=== PATIENT | female | born 1970 | race Caucasian/White ===

== ENCOUNTER 2016-12-11 09:05 | Emergency (ER) | payer OTHER ==
[2016-12-11 09:18] VITALS: BP 125/72
--- NOTE | 2016-12-11 09:42 | ERNOTE ---
Date of Service: 12/11/16 Time Seen by Provider: 12/11/16 09:23 Stated Complaint: COUGH Presenting Symptoms:: cough Source: patient Exam Limitations: no limitations Immunizations: IMMUNIZATION HX Immunizations Up to Date Yes History of Influenza Vaccine Yes Hx Pneumococcal Vaccination No Allergies/Adverse Reactions: Allergies No Known Allergies Allergy (Verified 05/31/16 08:42) Home Medications: HOME MEDICATIONS Meloxicam [Mobic] 7.5 mg PO DAILY 08/10/14 [Last Taken 08/10/14] Losartan Potassium [Cozaar] 50 mg PO DAILY 05/31/16 [Last Taken Unknown] Albuterol Sulfate [Proair Hfa] 1 - 2 puff IH Q4H PRN #1 inhaler 12/11/16 [Last Taken Unknown] Azithromycin [Zithromax] 500 mg PO NOW #6 tab 12/11/16 [Last Taken Unknown] Prednisone 50 mg PO DAILY #5 tablet 12/11/16 [Last Taken Unknown] - History of Present Ilness Narrative: Patient relates she has been coughing for over a week. She relates nasal congestion. Cough. This has been constant for 1 week. No hemoptysis. She relates she is prone to bronchitis and will normally get steroid and antibiotics. She relates chronic pain in her back and lefs but no new pain, no chest pain or abdominal pain. Does not feel SOB. No fever. Nothing seems to make this better or worse. Has not seen anyone else for this. Timing: constant Severity: moderate Frequency/Possible Cause: Reports: other - Hx of this in the past with bronchitis. Patient is a smoiker. Modifying Factors - Improves: Reports: nothing Modifying Factors - Worsens: Reports: nothing Associated Symptoms: Reports: cough, nasal congestion. Denies: chest pain/ soreness, shortness of breath, sore throat, fever/chills Prior Treatment: Denies: recently seen Review of Systems - Review of Systems Constitutional: Absent: fever ENT: Present: nose congestion Respiratory: Present: cough Cardiology: Absent: chest pain Gastrointestinal/Abdominal: Absent: abdominal pain Neurological: Absent: weakness - Patient's Past Medical History Patient History - Medical: Arthritis Patient History - Cardiac/Respiratory: Hypertension Patient History - Cancer: No Hx of Cancer Patient History - Surgical Procedures: , Tubal Ligation Patient History - Other: None LMP (Calendar): 05/17/16 - Social History Living Situations: home Smoking Status: Current every day smoker Alcohol Use: occasionally Drug Use: none - Immunizations Immunizations Up to Date: Yes Hx Pneumococcal Vaccination: No History of Influenza Vaccine: Yes Physical Exam - Physical Exam General Appearance: Present: alert, no apparent distress, other - Occasional cough. Speaking in full sentences. Non-toxic, no distress. Eye Exam: Normal inspection: bilateral, PERRL: bilateral Ears, Nose, Throat: Present: normal ENT inspection, normal pharynx. Absent: pharyngeal erythema, pharyngeal swelling, tonsillar exudate Neck: Present: normal inspection Respiratory: Present: no respiratory distress, other - occasional cough, no distress. Few faint scattered wheezes. 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 Vital Signs: Vital Signs 12/11/16 09:15 Temperature 36.0 C L Pulse Rate 91 Respiratory 16 Rate Blood Pressure 125/72 O2 Sat by Pulse 95 Oximetry - Progress/Reassessment Chief Complaint: Cough Progress Note-Subjective: 12/11/16 09:36 I disucssed labs and CXR with the patient, she prefers treatment and follow-up. She understands risks and benefits. No distress. I discussed warning signs and reasons to return as well as the need for close f/u. Nothing would suggest PE, ACS or other life threat. 12/11/16 09:36 12/11/16 09:37 Departure - Departure Clinical Impression: Bronchitis Disposition: Home self-care Instructions: Acute Bronchitis Additional Instructions: Rest. See your doctor within 3 days for a re-check. Return if you change your mind about having any of the testing we discussed, develop fever, trouble breathing, new pain or if your condition worsens or changes in any way. Referrals: Amy Srinivasan MD [Primary Care Provider] - Prescriptions: Albuterol Sulfate [Proair Hfa] 1 - 2 puff IH Q4H PRN #1 inhaler PRN Reason: Shortness Of Breath Azithromycin [Zithromax] 500 mg PO NOW #6 tab Prednisone 50 mg PO DAILY #5 tablet
== END 2016-12-11 09:48 | disposition home or self-care (01) ==
LOC: ER 09:05
DX: J40 Bronchitis, not specified as acute or chronic (principal); F17.210 Nicotine dependence, cigarettes, uncomplicated

== ENCOUNTER 2017-05-24 14:13 | Emergency (ER) | payer OTHER ==
--- NOTE | 2017-05-24 14:41 | ERNOTE ---
<Selin Mae - Last Filed: 05/24/17 15:31> Date of Service: 05/24/17 Time Seen by Provider: 05/24/17 14:41 Stated Complaint: BRONCHITIS Presenting Symptoms:: cough, fever Source: patient Exam Limitations: no limitations Immunizations: IMMUNIZATION HX Immunizations Up to Date Yes History of Influenza Vaccine Yes Hx Pneumococcal Vaccination No Allergies/Adverse Reactions: Allergies No Known Allergies Allergy (Verified 05/24/17 14:21) Home Medications: HOME MEDICATIONS Meloxicam [Mobic] 7.5 mg PO DAILY 08/10/14 [Last Taken 08/10/14] Losartan Potassium [Cozaar] 50 mg PO DAILY 05/31/16 [Last Taken Unknown] Albuterol Sulfate [Proair Hfa] 1 - 2 puff IH Q4H PRN #1 inhaler 12/11/16 [Last Taken Unknown] Albuterol Sulfate/Ipratropium [Duoneb 2.5-0.5MG/3ML Soln] 3 ml IH QID #150 vial 05/24/17 [Last Taken Unknown] Doxycycline Hyclate [Morgidox] 100 mg PO BID #30 capsule 05/24/17 [Last Taken Unknown] Doxycycline Monohydrate 100 mg PO BID #20 tablet 05/24/17 [Last Taken Unknown] predniSONE [Prednisone] 3 tab PO DAILY #9 tab 05/24/17 [Last Taken Unknown] - History of Present Ilness Narrative: Pt. comes in with c/o cough, sinus congestion, fever, malaise, SOB, rhinorrhea, and chest congestion for two weeks. Pt. denies taking any of her inhaler as she cannot afford one and denies any other prehospital treatment. Pt. denies any CP, NVD, palpitations, or edema. Review of Systems - Review of Systems Constitutional: Present: fever, fatigue, malaise. Absent: recent illness, weakness EYE: Present: no symptoms reported ENT: Present: ear pain, nose congestion, nasal drainage. Absent: sore throat Respiratory: Present: shortness of breath, cough, orthopnea, wheezing Cardiology: Present: no symptoms reported. Absent: chest pain, palpitations, edema Gastrointestinal/Abdominal: Present: no symptoms reported. Absent: nausea, vomiting, diarrhea Genitourinary: Present: no symptoms reported. Absent: frequency, decreased urinary output Musculoskeletal: Present: no symptoms reported. Absent: back pain, joint pain Neurological: Present: no symptoms reported. Absent: headache, dizziness/light- headedness, weakness, numbness, tingling All Other Systems: All systems neg except as marked - Patient's Past Medical History Patient History - Medical: Arthritis Patient History - Cardiac/Respiratory: Asthma, Hypertension Patient History - Cancer: No Hx of Cancer Patient History - Surgical Procedures: , Tubal Ligation Patient History - Other: None LMP (females 10-50): now - Social History Living Situations: spouse Abuse History: No History of abuse Psych History: Hx of Anxiety, Hx of Depression Smoking Status: Current every day smoker Alcohol Use: occasionally Drug Use: none - Immunizations Immunizations Up to Date: Yes Hx Pneumococcal Vaccination: No History of Influenza Vaccine: Yes Physical Exam - Physical Exam General Appearance: Present: wd/wn, alert, no apparent distress Eye Exam: Normal inspection: bilateral, PERRL: bilateral, EOMI: bilateral Ears, Nose, Throat: Present: nasal congestion, sinus pain/drainage, normal pharynx Neck: Present: normal inspection, nontender. Absent: lymphadenopathy (R), lymphadenopathy (L) Respiratory: Present: no respiratory distress, no accessory muscle use, chest nontender, expiration (prolonged), crackles, rhonchi, wheezing Cardiovascular/Chest: Present: regular rate, rhythm, no murmur, normal peripheral pulses Gastrointestinal/Abdominal: Present: normal bowel sounds, nontender, nondistended, soft, no organomegaly Back Exam: Present: normal inspection Extremity Exam: Present: normal inspection Neurological Exam: Present: alert, oriented, normal mood/affect, no motor/ sensory deficits Skin Exam: Present: warm/dry, pallor ED Progress - Results and Orders Patient's Lab Results:: I have reviewed the patient's lab results. - Vital Signs Patient's Vital Signs:: I have reviewed the patient's vital signs. Vital Signs: Vital Signs 05/24/17 05/24/17 14:16 14:46 Temperature 37.0 C Pulse Rate 93 82 Respiratory 26 H Rate Blood Pressure 113/88 O2 Sat by Pulse 96 94 Oximetry - X-Ray X-Ray #1 X-Ray: chest Interpretation: Reviewed by me X-ray Comments: B lower lobe infiltrates with RLL and RML fibrotic changes. - Progress/Reassessment Chief Complaint: Cough Progress:: Improved Departure - Departure Clinical Impression: Pneumonia Qualifiers: Pneumonia type: due to unspecified organism Laterality: bilateral Lung location : lower lobe of lung Qualified Code(s): J18.9 - Pneumonia, unspecified organism Disposition: Home self-care Condition: Good Instructions: Community-Acquired Pneumonia, Adult, [id number] Additional Instructions: Please take nebulizer treatments every 6 hours until symptoms improve. Please follow up with primary provider in 2-3 days. Referrals: Amy Srinivasan MD [Primary Care Provider] - Prescriptions: Albuterol Sulfate/Ipratropium [Duoneb 2.5-0.5MG/3ML Soln] 3 ml IH QID #150 vial Doxycycline Hyclate [Morgidox] 100 mg PO BID #30 capsule Doxycycline Monohydrate 100 mg PO BID #20 tablet predniSONE [Prednisone] 3 tab PO DAILY #9 tab <[email or web address] - Last Filed: 05/25/17 13:53> Immunizations: IMMUNIZATION HX Immunizations Up to Date Yes History of Influenza Vaccine Yes Hx Pneumococcal Vaccination No - Patient's Past Medical History Patient History - Medical: Arthritis Patient History - Cardiac/Respiratory: Asthma, Hypertension Patient History - Cancer: No Hx of Cancer Patient History - Surgical Procedures: , Tubal Ligation Patient History - Other: None LMP (females 10-50): now LMP (Calendar): 05/17/16 - Social History Living Situations: spouse Abuse History: No History of abuse Psych History: Hx of Depression Smoking Status: Current every day smoker Alcohol Use: occasionally Drug Use: none - Immunizations Immunizations Up to Date: Yes Hx Pneumococcal Vaccination: No History of Influenza Vaccine: Yes ED Progress - Vital Signs Vital Signs: Vital Signs 05/24/17 14:16 Temperature 37.0 C Pulse Rate 93 Blood Pressure 113/88 O2 Sat by Pulse 96 Oximetry
[2017-05-24] MEDS ORDERED: ALBUTEROL SULFATE 2.5 MG/0.5 ML VIAL.NEB IH ONE ×2 (14:42→14:43)
[2017-05-24 15:07] LABS: Hematocrit 37.4 % (37.0-47.0); Hemoglobin 12.9 gm/dL (12.5-16.0); Mean Cell Volume 94.4 fl (78-100); Mean Corpuscular Hemoglobin 32.6 pg (27-31); Mean Corpuscular Hgb Conc 34.5 g/dl (32-36); Mean Platelet Volume 11.3 fl (6.0-9.5); Neutrophil # 8.8 K/mm3 (1.3-6.0); Neutrophil % 77.7 % (42-75.0); Platelet Count 227 K/mm3 (150-450); Red Blood Count 3.96 M/mm3 (4.2-5.4); Red Cell Distribution Width 13.3 % (11.5-14.0); White Blood Count 11.3 K/mm3 (4.0-10.5)
[2017-05-24] MEDS ORDERED: ALBUTEROL SULFATE/IPRATROPIUM 3 ML NEBU IH ONE ×2 (15:13→15:18)
[2017-05-24] MEDS ORDERED: METHYLPREDNISOLONE ACETATE 80 MG/ML VIAL IM ONE (15:13)
[2017-05-24] MEDS ORDERED: METHYLPREDNISOLONE ACETATE 80 MG/ML VIAL ONE (15:18)
[2017-05-24 15:20] LABS: Albumin * 3.3 gm/dl (3.4-5.0); Anion Gap 12.2 mmol/L (6.8-13.8); BUN/Creatinine Ratio 16.3 (9.0-21.6); Bilirubin, Total 0.4 mg/dL (0.0-1.1); Ca. Corrected For Albumin 9.1 mg/dL (8.4-10.2); Calcium * 8.9 mg/dL (7.9-10.9); Carbon Dioxide 25.8 mmol/L (24-32.6); Magnesium 1.9 mg/dL (1.2-2.8); Total Protein 6.9 gm/dL (6.2-8.2)
[2017-05-24 15:27] VITALS: BP 103/78
== END 2017-05-24 16:04 | disposition home or self-care (01) ==
LOC: ER 14:13
DX: J18.9 Pneumonia, unspecified organism (principal); F17.200 Nicotine dependence, unspecified, uncomplicated

== ENCOUNTER 2020-08-12 04:13 | Inpatient (IN) ==
[2020-08-12] MEDS ORDERED: DEXAMETHASONE SODIUM PHOSP/PF 10 MG/ML VIAL IM ONE (04:28)
[2020-08-12] MEDS ORDERED: NORMAL SALINE 1,000 ML IV ONE (04:28)
[2020-08-12] MEDS ORDERED: ALBUTEROL SULFATE/IPRATROPIUM 3 ML NEBU IH ONE ×5 (04:28→07:18)
[2020-08-12 04:33] LABS: Hematocrit 41.1 % (37.0-47.0); Hemoglobin 13.4 gm/dL (12.5-16.0); Mean Corpuscular Hemoglobin 32.3 pg (27-31); Mean Corpuscular Hgb Conc 32.6 g/dl (32-36); Mean Platelet Volume 10.4 fl (8-12.5); Neutrophil % 58.1 % (42-75.0); Platelet Count 336 K/mm3 (150-450); Red Blood Count 4.15 M/mm3 (4.2-5.4); White Blood Count 10.3 K/mm3 (4.0-10.5)
--- NOTE | 2020-08-12 04:33 | ERNOTE ---
Dyspnea - Date Date of Service: 08/12/20 - General Presenting Symptoms: shortness of breath, difficulty of breathing, wheezing Time Seen by Provider: 08/12/20 04:17 Source: patient Exam Limitations: no limitations - Immun/Allergies/Home Medications Immunizations: IMMUNIZATION HX Immunizations Up to Date No History of Influenza Vaccine Yes Hx Pneumococcal Vaccination No Allergies/Adverse Reactions: Allergies No Known Allergies Allergy (Verified 08/12/20 04:29) Home Medications: HOME MEDICATIONS gabapentin 300 mg capsule 300 mg PO BID #60 cap 03/05/20 [Last Taken Unknown] losartan 50 mg tablet See Rx Instructions .ROUTE .COMPLEX #30 tab 08/09/20 [Last Taken Unknown] meloxicam 15 mg tablet 15 mg PO DAILY #30 tab 08/09/20 [Last Taken Unknown] albuterol sulfate 90 mcg/actuation aerosol inhaler 1 - 2 puff IH Q4H PRN #8.5 g 08/10/20 [Last Taken Unknown] - History of Present Illness Narrative: 50-year-old female comes to the emergency room complaining of shortness of breath difficulty breathing which is been going on for 5 days gotten worse this morning 27 days ago she was diagnosed with discomfort positive she was treated at home under quarantine and also has been since that time had pneumonia did not want to be admitted to the hospital so was treated at home azithromycin and another antibiotic which she states she is finished Patient is a known heavy smoker she says she has not had wants to smoke in the last 4 weeks and she is morbidly obese Date (Duration): 08/12/20 Time (Timing): 04:30 Severity: moderate Treatment ADVENTURE GUIDE: by patient Initiating event: Reports: upper resp illness Frequency of episodes: Reports: occassional episodes Modifying Factors - (Improves): Reports: albuterol Modifying Factors (Worsens): Reports: coughing Associated Symptoms-Dyspnea: Reports: denies symptoms Prior Treatment: Reports: recently seen Review of Systems - Review of Systems Constitutional: Present: recent illness EYE: Present: no symptoms reported ENT: Present: no symptoms reported Respiratory: Present: shortness of breath, wheezing Cardiology: Present: no symptoms reported Gastrointestinal/Abdominal: Present: no symptoms reported Genitourinary: Present: no symptoms reported Musculoskeletal: Present: no symptoms reported Skin: Present: no symptoms reported Neurological: Present: no symptoms reported Endocrine: Present: no symptoms reported Hematologic/Lymphatic: Present: no symptoms reported Psych: Present: no symptoms reported All Other Systems: All systems neg except as marked Medical History (Last Reviewed 08/12/20 @ 04:31 by Federico Olmedo MD) COVID-19 Essential hypertension Onset Date: ~2014 Surgical History: Surgical History (Last Reviewed 08/12/20 @ 04:31 by Federico Olmedo MD) History of section Onset Date: Unknown History of tubal ligation Onset Date: ~1990 Family History: Family History (Last Reviewed 08/12/20 @ 04:29 by Kaylin Cleaning RN) Mother Diabetes CHF (congestive heart failure) Father Alive and well Social History: (Last Reviewed 08/12/20 @ 04:29 by Kaylin Cleaning RN) Social History: Marital status: Single current occupational status: employed Service: No Tobacco: Smoking Status: Current every day smoker tobacco type: cigarettes Alcohol: alcohol intake: current alcohol intake frequency: holiday/special occasion Substance Use: substance use type: does not use Dietary Habits: caffeine: Yes Physical Exam - Physical Exam General Appearance: Present: wd/wn, alert, moderate distress, obese Head Exam: Present: normal inspection Eye Exam: Normal inspection: bilateral Ears, Nose, Throat: Present: normal ENT inspection, dry mucous membranes Neck: Present: normal inspection, nontender, supple Respiratory: Present: respiratory distress, rhonchi, wheezing. Absent: no accessory muscle use Cardiovascular/Chest: Present: tachycardia Gastrointestinal/Abdominal: Present: normal bowel sounds Back Exam: Present: normal inspection Extremity Exam: Present: normal inspection Neurological Exam: Present: alert, oriented Skin Exam: Present: normal color Lymphatic Exam: Present: no adenopathy Progress - Results and Orders Patient's Lab Results:: I have reviewed the patient's lab results. Results and Orders: Laboratory Tests 08/12/20 04:27 WBC 10.3 RBC 4.15 L Hgb 13.4 Hct 41.1 MCV 99.0 MCH 32.3 H MCHC 32.6 RDW 14.0 Plt Count 336 Neutrophils % 58.1 Lymphocytes % 22.2 Laboratory Tests 08/12/20 04:27 Sodium 141 Plasma Sodium 141 Potassium 4.0 Chloride 105 Carbon Dioxide 24.8 Anion Gap 15.2 H BUN 22 Creatinine 1.20 Est GFR (Non-Af Amer) 50 L BUN/Creatinine Ratio 18.3 Random Glucose 119 H Calcium 9.5 Calcium Adj for Albumin 9.6 Total Bilirubin 0.4 AST 20 ALT 38 Alkaline Phosphatase 131 B-Natriuretic Peptide 27 Total Protein 7.5 Albumin 3.5 COVID-19 test was negative - Vital Signs Patient's Vital Signs:: I have reviewed the patient's vital signs. Vital Signs: Vital Signs 08/12/20 04:26 Temperature 36.1 C Pulse Rate 104 H Respiratory Rate 23 H Blood Pressure 149/90 H O2 Sat by Pulse Oximetry 93 O2 sat 93% blood pressure 149 90 Elevated - EKG EKG #1 EKG: NSR EKG read: Interp. by me EKG Comments: EKG Shows a Sinus Tach 102 PVC no acute changes from July 17, 2020 - X-Ray X-Ray #1 X-Ray: chest Interpretation: Interp. by me X-ray Comments: No acute disease - Progress/Reassessment Chief Complaint: Dyspnea Progress Note-Subjective: 08/12/20 05:10 Patient feeling better still somewhat wheezing able to speak in full sentences Plan - Plan Plan: Plan will be due next repeat extended albuterol treatment and the patient can be discharged home on steroids and nebulized after repeat nebulizer patient still feels very well off oxygen sats are 93-94% still speaking full sentences Patient was diagnosed on 06/28/2020 with GLEN Scanlon consulted and admitted Departure Clinical Impression: Asthma exacerbation in COPD, Acute asthmatic bronchitis, COVID-19 - Departure Disposition: Short Term Hospital Inpatient Condition: Stable Instructions: Chronic Bronchitis, Adult Additional Instructions: Objective Dr. Scanlon Referrals: Amy Srinivasan MD [Primary Care Provider] -
[2020-08-12 04:58] LABS: Albumin * 3.5 gm/dl (3.4-5.0); Anion Gap 15.2 mmol/L (6.8-13.8); BUN/Creatinine Ratio 18.3 (9.0-21.6); Bilirubin, Total 0.4 mg/dL (0.0-1.1); Ca. Corrected For Albumin 9.6 mg/dL (8.4-10.2); Calcium * 9.5 mg/dL (7.9-10.9); Carbon Dioxide 24.8 mmol/L (24-32.6); Total Protein 7.5 gm/dL (6.2-8.2)
[2020-08-12] MEDS ORDERED: ALBUTEROL SULFATE 2.5 MG/0.5 ML VIAL.NEB IH ONE ×2 (05:08→05:10)
[2020-08-12] MEDS ORDERED: AZITHROMYCIN 250 MG TABLET PO ONE (09:29)
[2020-08-12] MEDS ORDERED: predniSONE 20 MG TABLET PO SCH (09:30)
--- NOTE | 2020-08-12 10:03 | HP ---
Chief Complaint - Chief Complaint Date of Service: 08/12/20 Time of Service: 09:48 Chief Complaint: I have shortness of breath and cough History of Present Illness: 50-year-old female with past medical history of nicotine dependence, morbid obesity, COPD, hypertension, and COVID-19 infection was evaluated in the ER for worsening dyspnea at rest and on exertion, wheezing, and persistent cough. Patient was diagnosed and treated for COVID-19 infection a little over a month ago and was later found to have pneumonia. After receiving treatment the patient reports her symptoms almost completely resolved and she only had residual shortness of breath which is not new for. However a week ago the patient noticed that her shortness of breath worsened and was not responding to her inhalers. She also has a cough that is persistent and dry making it difficult for her to rest. Patient was treated with azithromycin and dexamethasone for her COVID-19 and pneumonia which improved her symptom but now they are back. She denies any fever or chills or any chest pain. When the patient noticed that her breathing was getting worse she had no choice but to come to the ER. Once in the ER COVID-19 reinfection was ruled out and patient was diagnosed with a COPD exacerbation and hypoxia. Medical History (Last Reviewed 08/12/20 @ 07:53 by Magi Kerr RN) COVID-19 Essential hypertension Onset Date: ~2014 Surgical History: Surgical History (Last Reviewed 08/12/20 @ 07:53 by Magi Kerr RN) History of section Onset Date: Unknown History of tubal ligation Onset Date: ~1990 Family History: Family History (Last Reviewed 08/12/20 @ 07:53 by Magi Kerr RN) Mother Diabetes CHF (congestive heart failure) Father Alive and well Social History: (Last Reviewed 08/12/20 @ 07:53 by Magi Kerr RN) Social History: Marital status: Single current occupational status: employed Service: No Tobacco: Smoking Status: Current every day smoker tobacco type: cigarettes Alcohol: alcohol intake: current alcohol intake frequency: holiday/special occasion Substance Use: substance use type: does not use Dietary Habits: caffeine: Yes Peds Patient Hx - Developmental: No Pertinent Hx Peds Patient Hx - Medical: No Pertinent Hx Peds Patient Hx - Cardiac/Respiratory: No Pertinent Hx Peds Patient Hx - Surgical: No Surgical History Patient History - Cancer: No Hx of Cancer Review Of Systems (GEN) - Review of Systems Generalized/Overall Review: Present: No Symptoms Reported EENTM: Present: No Symptoms Reported Respiratory: Present: Cough, Shortness of Breath, Wheezing Cardiac: Present: No Symptoms Reported Abdominal: Present: No Symptoms Reported Genitourinary: Present: No Symptoms Reported Musculoskeletal: Present: No Symptoms Reported Neurological: Present: No Symptoms Reported Skin: Present: No Symptoms Reported Endocrine: Present: No Symptoms Reported Immunizations: IMMUNIZATION HX Immunizations Up to Date No History of Influenza Vaccine Yes Hx Pneumococcal Vaccination No Allergies/Adverse Reactions: Allergies Allergy/AdvReac Type Severity Reaction Status Date / Time No Known Allergies Allergy Verified 08/12/20 07:54 Home Medications: HOME MEDICATIONS gabapentin 300 mg capsule 300 mg PO BID #60 cap 03/05/20 [Last Taken 08/11/20] losartan 50 mg tablet See Rx Instructions .ROUTE .COMPLEX #30 tab 08/09/20 [Last Taken 08/11/20] meloxicam 15 mg tablet 15 mg PO DAILY #30 tab 08/09/20 [Last Taken Unknown] albuterol sulfate 90 mcg/actuation aerosol inhaler 1 - 2 puff IH Q4H PRN #8.5 g 08/10/20 [Last Taken 08/12/20] Exam - Exam Vital Signs: Vital Signs - Last Taken Temp 36.9 C 08/12/20 08:30 Pulse 106 H 08/12/20 08:32 Resp 20 08/12/20 08:30 BP 148/85 H 08/12/20 08:32 Pulse Ox 96 08/12/20 08:32 Constitutional: Present: Alert, Oriented x3, Cooperative, Well developed, No distress, Morbidly obese ENT Exam: Present: normal ENT inspection, hearing grossly normal, pharynx normal, TMs normal Eye Exam: bilateral eye: normal inspection, PERRL, EOMI Neck: Present: non-tender, full range of motion, supple, normal inspection, trachea midline Back Exam: Present: normal inspection, no CVA tenderness, no vertebral tenderness Breasts: Present: Exam deferred, Nontender Respiratory: Present: chest non-tender, no respiratory distress, no accessory muscle use, wheezing, other - Patient presents mild shortness of breath but has normal oxygenation. Cardiovascular/Chest: Present: normal peripheral pulses, regular rate, rhythm, no chest tenderness, no edema, no gallop, no JVD, no murmur, no rub Peripheral Pulses: dorsalis-pedis (R): 3+, dorsalis-pedis (L): 3+ Abdomen: Present: Normal bowel sounds, soft, nontender, nondistended, no rebound tenderness, no hepatospenomegaly, no masses, obese /Rectal: Present: Exam deferred Extremity: Present: normal range of motion, non-tender, normal inspection, no pedal edema, no calf tenderness, normal capillary refill, pelvis stable Skin Exam: Present: normal color, warm/dry, no cyanosis Lymphatic: Present: no adenopathy Neurologic: Present: first mate II-XII nml as tested, no motor/sensory deficits, alert, normal mood/affect, oriented x 3 Appearance: Present: appropriate appearance, appropriate insight, neat, no memory impairment Eye contact: Present: cooperative, good eye contact, normal speech Thoughts: Present: normal thought pattern, no apparent hallucination Diagnostic Studies: Abnormal Lab Results 08/12/20 08/12/20 Range/Units 04:27 04:27 RBC 4.15 L (4.2-5.4) M/mm3 MCH 32.3 H (27-31) pg Immature Gran # (Auto) 0.04 H (0.000-0.0310) K/mm3 Eosinophils % 10.6 H (0.0-3.0) % Eosinophils # 1.1 H (0.0-0.7) k/mm3 Anion Gap 15.2 H (6.8-13.8) mmol/L Est GFR (Non-Af Amer) 50 L (60-130) mL/min Random Glucose 119 H (70-110) mg/dL Laboratory Results WBC 10.3 K/mm3 (4.0-10.5) 08/12/20 04:27 RBC 4.15 M/mm3 (4.2-5.4) L 08/12/20 04:27 Hgb 13.4 gm/dL (12.5-16.0) 08/12/20 04:27 Hct 41.1 % (37.0-47.0) 08/12/20 04:27 MCV 99.0 fl (78-100) 08/12/20 04:27 MCH 32.3 pg (27-31) H 08/12/20 04:27 MCHC 32.6 g/dl (32-36) 08/12/20 04:27 RDW 14.0 % (11.5-14.0) 08/12/20 04:27 Plt Count 336 K/mm3 (150-450) 08/12/20 04:27 MPV 10.4 fl (8-12.5) 08/12/20 04:27 Immature Gran % (Auto) 0.40 % (0.001-0.429) 08/12/20 04:27 Immature Gran # (Auto) 0.04 K/mm3 (0.000-0.0310) H 08/12/20 04:27 Neutrophils % 58.1 % (42-75.0) 08/12/20 04:27 Lymphocytes % 22.2 % (20-51) 08/12/20 04:27 Monocytes % 8.0 % (0.0-9) 08/12/20 04:27 Eosinophils % 10.6 % (0.0-3.0) H 08/12/20 04:27 Basophils % 0.7 % (0.0-1.0) 08/12/20 04:27 Nucleated RBC % 0.0 k/mm3 (0-1) 08/12/20 04:27 Neutrophils # 6.0 K/mm3 (1.3-6.0) 08/12/20 04:27 Lymphocytes # 2.28 k/mm3 (1.5-3.5) 08/12/20 04:27 Monocytes # 0.8 k/mm3 (0.0-1.0) 08/12/20 04:27 Eosinophils # 1.1 k/mm3 (0.0-0.7) H 08/12/20 04:27 Absolute Basophils 0.1 k/mm3 (0.0-0.1) 08/12/20 04:27 Sodium 141 mmol/L (132-142) 08/12/20 04:27 Plasma Sodium 141 mmol/L (130-142) 08/12/20 04:27 Potassium 4.0 mmol/L (3.4-4.6) 08/12/20 04:27 Chloride 105 mmol/L (97-106) 08/12/20 04:27 Carbon Dioxide 24.8 mmol/L (24-32.6) 08/12/20 04:27 Anion Gap 15.2 mmol/L (6.8-13.8) H 08/12/20 04:27 BUN 22 mg/dL (3-23) 08/12/20 04:27 Creatinine 1.20 mg/dL (0.4-1.4) 08/12/20 04:27 Est GFR (Non-Af Amer) 50 mL/min (60-130) L 08/12/20 04:27 BUN/Creatinine Ratio 18.3 (9.0-21.6) 08/12/20 04:27 Random Glucose 119 mg/dL (70-110) H 08/12/20 04:27 Calcium 9.5 mg/dL (7.9-10.9) 08/12/20 04:27 Calcium Adj for Albumin 9.6 mg/dL (8.4-10.2) 08/12/20 04:27 Total Bilirubin 0.4 mg/dL (0.0-1.1) 08/12/20 04:27 AST 20 U/L (0-48) 08/12/20 04:27 ALT 38 U/L (19-67) 08/12/20 04:27 Alkaline Phosphatase 131 U/L (50-170) 08/12/20 04:27 B-Natriuretic Peptide 27 pg/mL (5-150) 08/12/20 04:27 Total Protein 7.5 gm/dL (6.2-8.2) 08/12/20 04:27 Albumin 3.5 gm/dl (3.4-5.0) 08/12/20 04:27 SARS-CoV-2 (PCR) Not detected (NotDetected) 08/12/20 05:15 Assessment/Plan - Narrative Narrative: Patient was evaluated medical chart was reviewed and decision to admit to [facility] for diagnosis and treatment of COPD exacerbation with hypoxia was made. Patient is currently resting comfortably but is having mild shortness of breath however she maintains normal oxygen saturation on room air. She was found to have some wheezing on auscultation but she informs me that she always has wheezing due to her history of bronchial asthma and COPD. Checks x-ray on admission reveals possible atypical viral pneumonia with bibasilar airspace disease. We will treat her with DuoNeb breathing treatments [id number] and IV steroids. Patient will also be treated with p.o. antibiotics for her COPD exacerbation and possible pneumonia. Although it is not recommended to swab patients who have recently been infected with COVID-19 virus due to unreliability of results, the patient was swabbed while in the ER and COVID-19 test was negative. She also denies any recent fever or chills. We will also resume all of her routine medications so that they can be administered during the hospitalization. Patient also informs me that given her recent illness she has made a decision to quit smoking, she has not smoked in more than 4 weeks. She was offered a nicotine patch but says she has no craving for nicotine so she does not need it. - Assessment/Plan (1) COPD exacerbation Problem: Acute (2) Nicotine dependence Problem: Chronic Qualifiers: Nicotine product type: cigarettes (3) Cigarette smoker motivated to quit Problem: Acute (4) Morbid (severe) obesity due to excess calories Problem: Acute (5) Pneumonia Problem: Acute (6) COVID-19 virus infection Problem: Ruled-out (7) Hypoxia Problem: Resolved (8) Dyspnea Problem: Acute Qualifiers: Dyspnea type: shortness of breath Qualified Code(s): R06.02 - Shortness of breath
[2020-08-12] MEDS: ALBUTEROL SULFATE/IPRATROPIUM 3 ML NEBU IH SCH ×5 (10:04→22:28)
[2020-08-12] MEDS: ACETAMINOPHEN 325 MG TABLET PO PRN ×3 (10:38→19:02)
[2020-08-12] MEDS: GABAPENTIN 300 MG CAPSULE PO SCH ×2 (10:39→20:49)
[2020-08-12] MEDS: LOSARTAN POTASSIUM 50 MG TABLET PO SCH (10:39)
[2020-08-12] MEDS: METHYLPREDNISOLONE SOD SUCC/PF 125 MG/2 ML VIAL IV SCH ×3 (10:40→22:15)
[2020-08-12] MEDS: MELOXICAM 15 MG TABLET PO SCH (10:40)
[2020-08-12] MEDS: ALBUTEROL SULFATE 2.5 MG/0.5 ML VIAL.NEB IH PRN (20:22)
[2020-08-12] MEDS: PANTOPRAZOLE SODIUM 40 MG TABLET.EC PO SCH (20:49)
[2020-08-13] MEDS: ALBUTEROL SULFATE/IPRATROPIUM 3 ML NEBU IH SCH ×6 (02:08→22:05)
[2020-08-13] MEDS: ACETAMINOPHEN 325 MG TABLET PO PRN ×2 (03:15→07:25)
[2020-08-13] MEDS: METHYLPREDNISOLONE SOD SUCC/PF 125 MG/2 ML VIAL IV SCH ×2 (03:16→11:44)
[2020-08-13] MEDS: guaiFENesin 100 MG/5 ML SYRUP PO PRN (03:22)
[2020-08-13] MEDS: ALBUTEROL SULFATE 2.5 MG/0.5 ML VIAL.NEB IH PRN ×3 (04:32→16:58)
[2020-08-13] MEDS: PANTOPRAZOLE SODIUM 40 MG TABLET.EC PO SCH ×2 (07:26→20:58)
[2020-08-13] MEDS: MELOXICAM 15 MG TABLET PO SCH (08:42)
[2020-08-13] MEDS: GABAPENTIN 300 MG CAPSULE PO SCH ×2 (08:42→20:58)
[2020-08-13] MEDS: LOSARTAN POTASSIUM 50 MG TABLET PO SCH (08:43)
[2020-08-13] MEDS: AZITHROMYCIN 250 MG TABLET PO SCH (08:44)
--- NOTE | 2020-08-13 10:27 | PN ---
Subjective - Date and Time Seen Date: 08/13/20 Time: 10:21 Subjective Narrative: I still have a lot of shortness of breath and cough. Objective Objective Narrative: 50-year-old female admitted for COPD exacerbation with shortness of breath and hypoxia was evaluated at bedside and was found to be afebrile but with continued dyspnea. Patient remains short of breath at rest and with mild exertion requiring breathing treatments every 4 hours [id number]. This morning she reported significant difficulty breathing despite all the treatments that we are administering. This patient will need an additional day of intrahospital care so she has been switched to inpatient status. I am increasing her IV steroids in an attempt to improving her respiratory function to ease her labored breathing. On auscultation the patient is heard to have significant wheezing scattered throughout both lungs, so we will continue to monitor her closely and optimize her treatment as best we can. - Review of Systems Generalized/Overall Review: Reports: No Symptoms Reported EENTM: Reports: No Symptoms Reported Respiratory: Reports: Cough, Shortness of Breath, Wheezing Cardiac: Reports: No Symptoms Reported Abdominal: Reports: No Symptoms Reported Genitourinary Symptoms: Reports: No Symptoms Reported Musculoskeletal Complaints: Reports: No Symptoms Reported Neurological: Reports: No Symptoms Reported Skin: Reports: No Symptoms Reported Endocrine: Reports: No Symptoms Reported - Vitals Vitals: Last Vital Signs Temp 36.6 C 08/13/20 06:00 Pulse 88 08/13/20 08:43 Resp 22 H 08/13/20 06:15 BP 158/92 H 08/13/20 08:43 Pulse Ox 98 08/13/20 06:05 - Exam Constitutional: Present: Alert, Oriented x3, Cooperative, Well developed, Mild distress, Morbidly obese ENT Exam: Present: normal ENT inspection, hearing grossly normal Neck: Present: non-tender, full range of motion, supple, normal inspection, trachea midline Breasts: Present: Exam deferred, Nontender Respiratory: Present: decreased breath sounds, wheezing Cardiovascular/Chest: Present: normal peripheral pulses, regular rate, rhythm, no chest tenderness, no edema, no gallop, no JVD, no murmur, no rub Abdomen: Present: Normal bowel sounds, soft, nontender, nondistended, no rebound tenderness, no hepatospenomegaly, no masses, obese /Rectal: Present: Exam deferred Extremity: Present: normal range of motion, non-tender, normal inspection, no pedal edema, no calf tenderness, normal capillary refill, pelvis stable Skin Exam: Present: normal color, warm/dry, no cyanosis Lymphatic: Present: no adenopathy Neurologic: Present: breast buffer II-XII nml as tested, normal cerebellar test, no motor/sensory deficits, alert, normal mood/affect, oriented x 3 Appearance: Present: appropriate appearance, appropriate insight, neat, no memory impairment Eye contact: Present: cooperative, good eye contact, normal speech Thoughts: Present: normal thought pattern, no apparent hallucination Assessment/Plan Plan Narrative: We will increase the patient's IV steroids and continue to treat her with DuoNeb [id number]. We will keep her an additional night for intra-hospital care. - Problems/Diagnosis (1) COPD exacerbation Problem: Acute (2) Nicotine dependence Problem: Chronic Qualifiers: Nicotine product type: cigarettes (3) Cigarette smoker motivated to quit Problem: Acute (4) Morbid (severe) obesity due to excess calories Problem: Chronic (5) Pneumonia Problem: Acute (6) COVID-19 virus infection Problem: Ruled-out (7) Hypoxia Problem: Resolved (8) Dyspnea Problem: Acute Qualifiers: Dyspnea type: shortness of breath Qualified Code(s): R06.02 - Shortness of breath (9) Cough Problem: Acute
[2020-08-13] MEDS: METHYLPREDNISOLONE SOD SUCC/PF 40 MG/ML VIAL IV SCH ×3 (11:15→22:46)
[2020-08-14] MEDS: ALBUTEROL SULFATE/IPRATROPIUM 3 ML NEBU IH SCH ×6 (02:04→23:08)
[2020-08-14] MEDS: METHYLPREDNISOLONE SOD SUCC/PF 40 MG/ML VIAL IV SCH ×4 (04:41→21:49)
[2020-08-14] MEDS: ACETAMINOPHEN 325 MG TABLET PO PRN ×4 (06:06→22:05)
[2020-08-14] MEDS ORDERED: ALBUTEROL SULFATE 2.5 MG/0.5 ML VIAL.NEB IH SCH (09:00)
[2020-08-14] MEDS: BENZONATATE 100 MG CAPSULE PO PRN (09:11)
[2020-08-14] MEDS: GABAPENTIN 300 MG CAPSULE PO SCH ×2 (09:13→21:48)
[2020-08-14] MEDS: LOSARTAN POTASSIUM 50 MG TABLET PO SCH (09:13)
[2020-08-14] MEDS: AZITHROMYCIN 250 MG TABLET PO SCH (09:13)
[2020-08-14] MEDS: PANTOPRAZOLE SODIUM 40 MG TABLET.EC PO SCH ×2 (09:14→21:49)
[2020-08-14] MEDS: MELOXICAM 15 MG TABLET PO SCH (09:14)
--- NOTE | 2020-08-14 12:26 | PN ---
Subjective - Date and Time Seen Date: 08/14/20 Time: 12:14 Subjective Narrative: I still have a lot of shortness of breath and cough. Objective Objective Narrative: 50-year-old female admitted for COPD exacerbation with shortness of breath and hypoxia was evaluated at bedside and was found to be afebrile but with shortness of breath. Patient's dyspnea persists despite increasing her IV steroids and breathing treatment. On auscultation she continues to have wheezing and presents with a persistent dry cough. She does however reports some improvement with her breathing at rest and says most of her problem is on exertion like when she is going to the bathroom. Therefore we will continue the current IV steroids but give her breathing treatments every 2 hours alternating between DuoNeb and albuterol and will add Tessalon Perles for coughing. We will add terbutaline in an attempt to improve her respiratory function. Patient maintains normal oxygen saturation on room air despite her issues with her breat matheus. We will continue to monitor closely. During the hospitalization the patient's razor was given to another patient down the hallway who used her personal razor to shave his face. This created an exposure for the other patient, therefore after discussing the issue with Mrs. Toledo she agreed to testing for HIV and hepatitis B and C in order to determine if she has any infection with these viruses. Once we have the results we will inform her. - Review of Systems Generalized/Overall Review: Reports: No Symptoms Reported EENTM: Reports: No Symptoms Reported Respiratory: Reports: Cough, Shortness of Breath, Wheezing Cardiac: Reports: No Symptoms Reported Abdominal: Reports: No Symptoms Reported Genitourinary Symptoms: Reports: No Symptoms Reported Musculoskeletal Complaints: Reports: No Symptoms Reported Neurological: Reports: No Symptoms Reported Skin: Reports: No Symptoms Reported Endocrine: Reports: No Symptoms Reported - Vitals Vitals: Last Vital Signs Temp 37.2 C 08/14/20 07:07 Pulse 101 H 08/14/20 11:04 Resp 24 H 08/14/20 11:04 BP 149/81 H 08/14/20 10:50 Pulse Ox 97 08/14/20 10:55 - Exam Constitutional: Present: Alert, Oriented x3, Cooperative, Well developed, Well nourished, Mild distress, Morbidly obese ENT Exam: Present: normal ENT inspection, hearing grossly normal Neck: Present: non-tender, full range of motion, supple, normal inspection, tra toño midline Breasts: Present: Exam deferred Respiratory: Present: wheezing Cardiovascular/Chest: Present: normal peripheral pulses, regular rate, rhythm, no chest tenderness, no edema, no gallop, no JVD, no murmur Abdomen: Present: Normal bowel sounds, soft, nontender, nondistended, no rebound tenderness, no hepatospenomegaly, no masses, obese /Rectal: Present: Exam deferred Extremity: Present: normal range of motion, non-tender, normal inspection, no pedal edema, no calf tenderness Skin Exam: Present: normal color, warm/dry, no cyanosis Lymphatic: Present: no adenopathy Neurologic: Present: 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 All recommended labs to determine any previous infection with hepatitis or HIV were ordered since the other patient was possibly exposed by using her razor. Patient agreed to the testing and consent was obtained. We will continue to monitor closely. - Problems/Diagnosis (1) COPD exacerbation Problem: Acute (2) Nicotine dependence Problem: Chronic Qualifiers: Nicotine product type: cigarettes (3) Cigarette smoker motivated to quit Problem: Acute (4) Morbid (severe) obesity due to excess calories Problem: Chronic (5) Pneumonia Problem: Acute (6) COVID-19 virus infection Problem: Ruled-out (7) Hypoxia Problem: Resolved (8) Dyspnea Problem: Acute Qualifiers: Dyspnea type: shortness of breath Qualified Code(s): R06.02 - Shortness of breath (9) Cough Problem: Acute
[2020-08-14] MEDS: ALBUTEROL SULFATE 2.5 MG/0.5 ML VIAL.NEB IH SCH ×3 (13:16→21:18)
[2020-08-14] MEDS: TERBUTALINE SULFATE 2.5 MG TABLET PO SCH ×3 (13:25→20:01)
[2020-08-14] MEDS: guaiFENesin 100 MG/5 ML SYRUP PO PRN (20:03)
[2020-08-15] MEDS: ALBUTEROL SULFATE 2.5 MG/0.5 ML VIAL.NEB IH SCH ×6 (01:04→21:59)
[2020-08-15] MEDS: TERBUTALINE SULFATE 2.5 MG TABLET PO SCH ×6 (01:06→20:07)
[2020-08-15] MEDS: ALBUTEROL SULFATE/IPRATROPIUM 3 ML NEBU IH SCH ×4 (03:00→14:02)
[2020-08-15] MEDS: METHYLPREDNISOLONE SOD SUCC/PF 40 MG/ML VIAL IV SCH (05:07)
[2020-08-15] MEDS: ACETAMINOPHEN 325 MG TABLET PO PRN (06:38)
[2020-08-15] MEDS: PANTOPRAZOLE SODIUM 40 MG TABLET.EC PO SCH ×2 (06:38→20:08)
[2020-08-15] MEDS: GABAPENTIN 300 MG CAPSULE PO SCH ×2 (08:50→20:08)
[2020-08-15] MEDS: AZITHROMYCIN 250 MG TABLET PO SCH (08:50)
[2020-08-15] MEDS: LOSARTAN POTASSIUM 50 MG TABLET PO SCH (08:50)
[2020-08-15] MEDS: MELOXICAM 15 MG TABLET PO SCH (08:50)
[2020-08-15 08:54] LABS: Hematocrit 42.3 % (37.0-47.0); Hemoglobin 13.5 gm/dL (12.5-16.0); Mean Cell Volume 100.2 fl (78-100); Mean Corpuscular Hgb Conc 31.9 g/dl (32-36); Mean Platelet Volume 11.3 fl (8-12.5); Neutrophil # 14.5 K/mm3 (1.3-6.0); Neutrophil % 84.8 % (42-75.0); Platelet Count 425 K/mm3 (150-450); Red Blood Count 4.22 M/mm3 (4.2-5.4); Red Cell Distribution Width 14.4 % (11.5-14.0); White Blood Count 17.1 K/mm3 (4.0-10.5)
[2020-08-15 09:06] LABS: Albumin * 3.5 gm/dl (3.4-5.0); Anion Gap 13.8 mmol/L (6.8-13.8); BUN/Creatinine Ratio 24.5 (9.0-21.6); Bilirubin, Total 0.3 mg/dL (0.0-1.1); Ca. Corrected For Albumin 10.7 mg/dL (8.4-10.2); Calcium * 10.6 mg/dL (7.9-10.9); Carbon Dioxide 24.5 mmol/L (24-32.6); Potassium 4.3 mmol/L (3.4-4.6); Total Protein 7.4 gm/dL (6.2-8.2)
--- NOTE | 2020-08-15 09:25 | PN ---
Subjective - Date and Time Seen Date: 08/15/20 Time: 09:17 Subjective Narrative: I still have a lot of shortness of breath and cough. I am scared because I'm not getting better. Objective Objective Narrative: 50-year-old female admitted for COPD exacerbation with shortness of breath and hypoxia was evaluated at bedside and was found to be afebrile but with shortness of breath and cough. The patient is not progressing as well as we would have liked, it appears that her breathing is worsening and now requires supplemental oxygen which is new for her. Her treatment was optimized after rounds yesterday morning and she was getting breathing treatments every 2 hours however she reports that did not help and wants to go back to every 4 hours. We also added terbutaline in an effort to smooth the smooth muscle of the bronchioles but that has not been effective either. It is very apparent that this is a lingering complication of her recent COVID-19 infection which is not responding well to treatment. Given her clinical presentation I will order a work-up with a chest CT and labs in order to investigate further into the cause of her symptoms. In the meantime respect epinephrine was added to her treatment since the patient still has significant wheezing on auscultation. This morning the patient was very discouraged and cried and expressed that she is scared that COVID might kill her, this is compounded by the fact that despite our best efforts she is not getting any better and with her breathing. We discussed possibly transferring her to another hospital for higher level of care and for a pulmonary consult but she agreed that we should wait for the work-up results in order to make that determination. She denies any chest pain and maintains a normal sinus rhythm so a cardiac etiology is very unlikely. Another interesting fact is the patient admits to taking meloxicam which is a NSAID daily for osteoarthritis before arriving to the hospital. Multiple articles have been published that NSAID tends to exacerbate or worsen complications with COVID. The NSAID was held since admission so she has not been receiving it here. We will continue to monitor her closely. - Review of Systems Generalized/Overall Review: Reports: No Symptoms Reported EENTM: Reports: No Symptoms Reported Respiratory: Reports: Cough, Shortness of Breath, Wheezing Cardiac: Reports: No Symptoms Reported Abdominal: Reports: No Symptoms Reported Genitourinary Symptoms: Reports: No Symptoms Reported Musculoskeletal Complaints: Reports: No Symptoms Reported Neurological: Reports: No Symptoms Reported Skin: Reports: No Symptoms Reported Endocrine: Reports: No Symptoms Reported - Vitals Vitals: Last Vital Signs Temp 36.6 C 08/15/20 06:36 Pulse 91 08/15/20 08:50 Resp 18 08/15/20 06:36 BP 160/104 H 08/15/20 08:50 Pulse Ox 93 08/15/20 08:22 - Abnormal Lab Findings Abnormal Lab Findings: Abnormal Lab Results 08/15/20 08/15/20 Range/Units 06:05 06:05 WBC 17.1 H (4.0-10.5) K/mm3 MCV 100.2 H (78-100) fl MCH 32.0 H (27-31) pg MCHC 31.9 L (32-36) g/dl RDW 14.4 H (11.5-14.0) % Immature Gran % (Auto) 2.30 H (0.001-0.429) % Immature Gran # (Auto) 0.40 H (0.000-0.0310) K/mm3 Neutrophils % 84.8 H (42-75.0) % Lymphocytes % 7.5 L (20-51) % Neutrophils # 14.5 H (1.3-6.0) K/mm3 Lymphocytes # 1.28 L (1.5-3.5) k/mm3 BUN 24 H (3-23) mg/dL BUN/Creatinine Ratio 24.5 H (9.0-21.6) Random Glucose 185 H (70-110) mg/dL Calcium Adj for Albumin 10.7 H (8.4-10.2) mg/dL - Exam Constitutional: Present: Alert, Oriented x3, Cooperative, Well developed, No distress, Morbidly obese ENT Exam: Present: normal ENT inspection, hearing grossly normal Neck: Present: non-tender, full range of motion, supple, normal inspection, trachea midline Breasts: Present: Exam deferred Respiratory: Present: no accessory muscle use, wheezing Cardiovascular/Chest: Present: normal peripheral pulses, regular rate, rhythm, no chest tenderness, no edema, no gallop, no JVD, no murmur, no rub Abdomen: Present: Normal bowel sounds, soft, nontender, nondistended, no rebound tenderness, no hepatospenomegaly, obese /Rectal: Present: Exam deferred Extremity: Present: normal range of motion, non-tender, normal inspection, no pedal edema, no calf tenderness, normal capillary refill, pelvis stable Skin Exam: Present: normal color, warm/dry, no cyanosis Lymphatic: Present: no adenopathy Neurologic: Present: 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 We will await lab results and chest CT for further evaluation. - Problems/Diagnosis (1) COPD exacerbation Problem: Acute (2) Nicotine dependence Problem: Chronic Qualifiers: Nicotine product type: cigarettes (3) Cigarette smoker motivated to quit Problem: Acute (4) Morbid (severe) obesity due to excess calories Problem: Chronic (5) Pneumonia Problem: Acute (6) COVID-19 virus infection Problem: Ruled-out (7) Hypoxia Problem: Acute (8) Dyspnea Problem: Acute Qualifiers: Dyspnea type: shortness of breath Qualified Code(s): R06.02 - Shortness of breath (9) Cough Problem: Acute
[2020-08-15] MEDS ORDERED: METHYLPREDNISOLONE SOD SUCC/PF 125 MG/2 ML VIAL ONE (09:30)
[2020-08-15] MEDS ORDERED: METHYLPREDNISOLONE SOD SUCC/PF 40 MG/ML VIAL ONE (09:33)
[2020-08-15] MEDS: METHYLPREDNISOLONE SOD SUCC/PF 125 MG/2 ML VIAL IV SCH ×3 (10:40→20:12)
[2020-08-15] MEDS: RACEPINEPHRINE HCL 0.5 ML VIAL IH SCH ×2 (11:36→14:07)
[2020-08-15] MEDS: METOPROLOL TARTRATE 50 MG TABLET PO SCH (11:40)
[2020-08-15] MEDS: BENZONATATE 100 MG CAPSULE PO PRN (15:06)
[2020-08-15] MEDS: guaiFENesin 100 MG/5 ML SYRUP PO PRN (15:07)
[2020-08-15] MEDS ORDERED: LORazepam 0.5 MG TABLET PO PRN (15:37)
[2020-08-15] MEDS ORDERED: ALBUTEROL SULFATE/IPRATROPIUM 3 ML NEBU IH PRN (15:37)
[2020-08-16] MEDS: TERBUTALINE SULFATE 2.5 MG TABLET PO SCH ×3 (00:08→07:36)
[2020-08-16] MEDS: ALBUTEROL SULFATE 2.5 MG/0.5 ML VIAL.NEB IH SCH ×2 (02:04→06:03)
[2020-08-16] MEDS: METHYLPREDNISOLONE SOD SUCC/PF 125 MG/2 ML VIAL IV SCH ×2 (03:32→08:53)
[2020-08-16] MEDS: PANTOPRAZOLE SODIUM 40 MG TABLET.EC PO SCH ×2 (07:36→21:36)
[2020-08-16] MEDS: MELOXICAM 15 MG TABLET PO SCH (08:51)
[2020-08-16] MEDS: LOSARTAN POTASSIUM 50 MG TABLET PO SCH (08:51)
[2020-08-16] MEDS: GABAPENTIN 300 MG CAPSULE PO SCH ×2 (08:52→21:36)
[2020-08-16] MEDS: AZITHROMYCIN 250 MG TABLET PO SCH (08:52)
[2020-08-16] MEDS: METOPROLOL TARTRATE 50 MG TABLET PO SCH (08:52)
--- NOTE | 2020-08-16 08:57 | PN ---
Subjective - Date and Time Seen Date: 08/16/20 Time: 08:51 Subjective Narrative: I still have tightness in my chest and coughing. Objective Objective Narrative: 50-year-old female admitted for COPD exacerbation with shortness of breath and hypoxia was evaluated at bedside and appeared more relaxed with less shortness of breath at rest however when the patient starts to speak she develops coughing fits and wheezing making it difficult for her to complete her sentences. Her oxygenation appears to be improving although we will keep her on nasal cannula 2 L for now but a walk test is scheduled for later this morning to evaluate oxygen saturation on exertion and to determine whether or not the patient will need supplemental oxygen after discharge. Consultation to pulmonology was placed and the patient will be evaluated later today, will follow up with further recommendations. In the meantime we will keep the patient on breathing treatments alternating between DuoNeb and albuterol and on IV steroids to address the inflammation in her lungs. Chest CT done yesterday morning revealed improvement from her previous chest CT done 30 days ago however she still shows groundglass densities and evidence of an atypical viral pneumonia. - Review of Systems Generalized/Overall Review: Reports: No Symptoms Reported EENTM: Reports: No Symptoms Reported Respiratory: Reports: Cough, Shortness of Breath, Wheezing Cardiac: Reports: No Symptoms Reported Abdominal: Reports: No Symptoms Reported Genitourinary Symptoms: Reports: No Symptoms Reported Musculoskeletal Complaints: Reports: No Symptoms Reported Neurological: Reports: No Symptoms Reported Skin: Reports: No Symptoms Reported Endocrine: Reports: No Symptoms Reported - Vitals Vitals: Last Vital Signs Temp 36.8 C 08/16/20 06:32 Pulse 101 H 08/16/20 07:00 Resp 20 08/16/20 06:32 BP 120/67 08/16/20 06:32 Pulse Ox 95 08/16/20 06:32 - Abnormal Lab Findings Abnormal Lab Findings: Abnormal Lab Results 08/15/20 08/15/20 Range/Units 06:05 06:05 WBC 17.1 H (4.0-10.5) K/mm3 MCV 100.2 H (78-100) fl MCH 32.0 H (27-31) pg MCHC 31.9 L (32-36) g/dl RDW 14.4 H (11.5-14.0) % Immature Gran % (Auto) 2.30 H (0.001-0.429) % Immature Gran # (Auto) 0.40 H (0.000-0.0310) K/mm3 Neutrophils % 84.8 H (42-75.0) % Lymphocytes % 7.5 L (20-51) % Neutrophils # 14.5 H (1.3-6.0) K/mm3 Lymphocytes # 1.28 L (1.5-3.5) k/mm3 BUN 24 H (3-23) mg/dL BUN/Creatinine Ratio 24.5 H (9.0-21.6) Random Glucose 185 H (70-110) mg/dL Calcium Adj for Albumin 10.7 H (8.4-10.2) mg/dL - Exam Constitutional: Present: Alert, Oriented x3, Cooperative, Well developed, No distress, Morbidly obese ENT Exam: Present: normal ENT inspection, hearing grossly normal Neck: Present: non-tender, full range of motion, supple, normal inspection, trachea midline Breasts: Present: Exam deferred Respiratory: Present: chest non-tender, wheezing Cardiovascular/Chest: Present: normal peripheral pulses, regular rate, rhythm, no chest tenderness, no edema, no gallop, no JVD, no murmur, no rub Abdomen: Present: Normal bowel sounds, soft, nontender, nondistended, no rebound tenderness, no hepatospenomegaly, no masses, obese /Rectal: Present: Exam deferred Extremity: Present: normal range of motion, non-tender, normal inspection, no pedal edema, no calf tenderness, normal capillary refill, pelvis stable Skin Exam: Present: normal color, warm/dry, no cyanosis Lymphatic: Present: no adenopathy 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 - Problems/Diagnosis (1) COPD exacerbation Problem: Acute (2) Nicotine dependence Problem: Chronic Qualifiers: Nicotine product type: cigarettes (3) Cigarette smoker motivated to quit Problem: Acute (4) Morbid (severe) obesity due to excess calories Problem: Chronic (5) Pneumonia Problem: Acute (6) COVID-19 virus infection Problem: Ruled-out (7) Hypoxia Problem: Acute (8) Dyspnea Problem: Acute Qualifiers: Dyspnea type: shortness of breath Qualified Code(s): R06.02 - Shortness of breath (9) Cough Problem: Acute
[2020-08-16] MEDS ORDERED: FORMOTEROL FUMARATE 20 MCG/2 ML VIAL IH SCH (10:00)
[2020-08-16] MEDS ORDERED: FLUTICASONE PROPION/SALMETEROL 14 PUFF DISK.W.DEV IH SCH (10:15)
[2020-08-16] MEDS: MONTELUKAST SODIUM 10 MG TABLET PO SCH (10:40)
[2020-08-16] MEDS: TIOTROPIUM BROMIDE 5 CAP INHALER IH SCH (11:04)
--- NOTE | 2020-08-16 12:59 | CONS ---
[facility] - General Date of Service: 08/16/20 Narrative: This is a 50 y/o WF who I was asked to consult regarding dyspnea. She has a history of recurrent bronchitis and asthma. In mid June she presented with COVID-19. She was instructed to stay home for 2 weeks. In early Jul, she developed increased dyspnea and was seen in the ER and was d/c on prednisone, z- pack and albuteral. She returned to the hospital on 08/12 for increased dyspnea and was hospitalized. She is on DUONEB and high dose solumedrol. She has been a chronic smoker of 1ppd since age 14. She works as a machine wood sander. She is breathing better but has required 2L of o2. - History of Present Illness Allergies/Adverse Reactions: Allergies No Known Allergies Allergy (Verified 08/12/20 07:54) Home Medications: Home Medications Medication Instructions Recorded Last Taken gabapentin 300 mg capsule 300 mg PO BID #60 cap 03/05/20 08/11/20 losartan 50 mg tablet See Rx Instructions .ROUTE 08/09/20 08/11/20 .COMPLEX #30 tab meloxicam 15 mg tablet 15 mg PO DAILY #30 tab 08/09/20 Unknown albuterol sulfate 90 mcg/actuation 1 - 2 puff IH Q4H PRN #8.5 g 08/10/20 08/12/20 aerosol inhaler Procedures Closed [percutaneous] [needle] biopsy of breast (06/15/15) DPT ADMINISTRATION (05/27/10) Diagnostic ultrasound of other sites of thorax (06/15/15) Other diagnostic procedures on breast (06/15/15) Medications - Medications Current Medications: Current Medications Acetaminophen (Tylenol) 650 mg PO Q4H PRN PRN Reason: Mild pain (pain scale 1-3) Stop: 09/11/20 09:27 Last Admin: 08/15/20 06:38 Dose: 650 mg Documented by: Benzonatate (Tessalon) 200 mg PO TID PRN PRN Reason: Cough Stop: 09/13/20 08:51 Last Admin: 08/15/20 15:06 Dose: 200 mg Documented by: Formoterol Fumarate (Perforomist) 20 mcg IH Q12H CANDACE Stop: 09/15/20 10:01 Last Admin: 08/16/20 10:44 Dose: 20 mcg Documented by: Gabapentin (Neurontin) 300 mg PO BID [facility] Stop: 09/11/20 09:46 Last Admin: 08/16/20 08:52 Dose: 300 mg Documented by: Guaifenesin (Robitussin) 100 mg PO Q4H PRN PRN Reason: Cough Stop: 09/11/20 09:33 Last Admin: 08/15/20 15:07 Dose: 100 mg Documented by: Guaifenesin (Mucinex) 1,200 mg PO BID CANDACE Stop: 09/14/20 12:01 Last Admin: 08/16/20 08:52 Dose: 1,200 mg Documented by: Losartan Potassium (Cozaar) 50 mg PO DAILY CANDACE Stop: 09/11/20 09:46 Last Admin: 08/16/20 08:51 Dose: 50 mg Documented by: Meloxicam (Mobic) 15 mg PO DAILY CANDACE Stop: 09/11/20 09:46 Last Admin: 08/16/20 08:51 Dose: Not Given Documented by: Metoprolol Tartrate (Lopressor) 50 mg PO DAILY CANDACE Stop: 09/14/20 11:31 Last Admin: 08/16/20 08:52 Dose: 50 mg Documented by: Montelukast Sodium (Singulair) 10 mg PO DAILY CANDACE Stop: 09/15/20 10:16 Last Admin: 08/16/20 10:40 Dose: 10 mg Documented by: Pantoprazole Sodium (Protonix) 40 mg PO BID@0700,2100 CANDACE Stop: 09/11/20 21:01 Last Admin: 08/16/20 07:36 Dose: 40 mg Documented by: Fluticasone/Salmeterol (Advair 250-50 Diskus) 2 puff IH BID CANDACE Stop: 09/15/20 10:16 Last Admin: 08/16/20 10:37 Dose: 2 puff Documented by: Tiotropium [place] (Spiriva) 1 cap IH DAILY CANDACE Stop: 09/15/20 10:16 Last Admin: 08/16/20 11:04 Dose: 1 cap Documented by: Review of Systems - Review of Systems Narrative: I reviewed all 14 point systems and the ROS is negative except was was mentioned in my HPI or recorded by the RN/MD. Physical Examination - Exam Narrative: This is a middle age, obese female in NAD. Head normacephalic. Oral pharnyx clear. Neck supple. Lungs shows diffuse wheezes, CV HRRR w/o murmur. Abdomen, BS + and no organomegally. Ext w/o edema. Neuro: non-focal. CT of lung shows scattered ground glass disease which improved since 07/17/2020. Increased peripheral eosinophils. No prior PFT. Nasal COVID-19 test is negative. Vital Signs: Vital Signs - Last Taken Temp 36.8 C 08/16/20 06:32 Pulse 101 H 08/16/20 08:52 Resp 20 08/16/20 06:32 BP 120/67 08/16/20 08:52 Pulse Ox 95 08/16/20 06:32 O2 Oxygen Delivery Method Room Air - Assessments/Findings (1) Nicotine dependence Problem: Chronic (2) Asthma exacerbation in COPD Diagnosis(s): The patient has asthma/COPD overlap syndrome with eosinophilia and recent COVID- 19 infection. She has improved. I recommend the followin. Change IV steroids to prednisone 60 mg daily and taper by 10 my every 5 days. 2. Symbicort 160 2p BID 3. Spiriva 1.25 2p daily 4. Montelukast. 5. alpha 1 level, IgE. RTC in 1 month with full PFT, FENO. Problem: Acute
[2020-08-16] MEDS: FLUTICASONE PROPION/SALMETEROL 14 PUFF DISK.W.DEV IH SCH ×2 (14:50→21:35)
[2020-08-16] MEDS: FORMOTEROL FUMARATE 20 MCG/2 ML VIAL IH SCH (18:05)
[2020-08-17] MEDS: FORMOTEROL FUMARATE 20 MCG/2 ML VIAL IH SCH (06:01)
[2020-08-17] MEDS: PANTOPRAZOLE SODIUM 40 MG TABLET.EC PO SCH (07:22)
[2020-08-17] MEDS: LOSARTAN POTASSIUM 50 MG TABLET PO SCH (08:25)
[2020-08-17] MEDS: METOPROLOL TARTRATE 50 MG TABLET PO SCH (08:26)
[2020-08-17] MEDS: MELOXICAM 15 MG TABLET PO SCH (08:27)
[2020-08-17] MEDS: GABAPENTIN 300 MG CAPSULE PO SCH (08:28)
[2020-08-17] MEDS: MONTELUKAST SODIUM 10 MG TABLET PO SCH (08:31)
[2020-08-17] MEDS: TIOTROPIUM BROMIDE 5 CAP INHALER IH SCH (08:32)
[2020-08-17] MEDS: FLUTICASONE PROPION/SALMETEROL 14 PUFF DISK.W.DEV IH SCH (08:34)
[2020-08-17] MEDS ORDERED: amLODIPine BESYLATE 5 MG TABLET PO SCH (09:00)
[2020-08-17] MEDS ORDERED: predniSONE 10 MG TABLET PO SCH (09:00)
--- NOTE | 2020-08-17 09:15 | DS ---
(1) COPD exacerbation Problem: Resolved (2) Nicotine dependence Problem: Chronic Qualifiers: Nicotine product type: cigarettes (3) Cigarette smoker motivated to quit Problem: Acute (4) Morbid (severe) obesity due to excess calories Problem: Chronic (5) Pneumonia Problem: Acute (6) COVID-19 virus infection Problem: Ruled-out (7) Hypoxia Problem: Resolved (8) Dyspnea Problem: Resolved Qualifiers: Dyspnea type: shortness of breath Qualified Code(s): R06.02 - Shortness of breath (9) Cough Problem: Acute (10) Asthma-COPD overlap syndrome Problem: Resolved Date of Discharge:: 08/17/20 Hospital Course: 50-year-old female admitted for asthma COPD overlap syndrome, dyspnea, recent COVID-19 infection was evaluated at bedside was found to be afebrile and in no acute distress. The patient was evaluated by the risk intern yesterday who made some significant changes to her treatment and this morning she is showing improvement and response to the treatment. The patient appeared less short of breath and her lung sounds are improving. She still reports dyspnea on exertion but it was explained to her that after such a significant exacerbation of her respiratory conditions we expect some dyspnea for the next couple of days. We will continue the current treatment and discharge patient home with prescriptions for her to continue this at home. However before discharging her we will conduct another walk test in order to determine if she will need ongoing oxygen supplementation. Currently she is on 2 L saturating at 94% and doing better. The patient still has a lingering cough so we will provide her with a prescription for antitussive and a decongestant. I think she will also benefit from additional days of anxiety medications. She expressed a desire to establish with me and follow-up with me in a week and will also arrange for her to follow-up with a risk intern on outpatient basis. Procedures Performed: none Results and Findings: Lab Pending Results 08/12/20 04:27: WBC 10.3, RBC 4.15 L, Hgb 13.4, Hct 41.1, MCV 99.0, MCH 32.3 H, MCHC 32.6, RDW 14.0, Plt Count 336, MPV 10.4, Immature Gran % (Auto) 0.40, Immature Gran # (Auto) 0.04 H, Neutrophils % 58.1, Lymphocytes % 22.2, Monocytes % 8.0, Eosinophils % 10.6 H, Basophils % 0.7, Nucleated RBC % 0.0, Neutrophils # 6.0, Lymphocytes # 2.28, Monocytes # 0.8, Eosinophils # 1.1 H, Absolute Basophils 0.1 08/12/20 04:27: Sodium 141, Plasma Sodium 141, Potassium 4.0, Chloride 105, Carbon Dioxide 24.8, Anion Gap 15.2 H, BUN 22, Creatinine 1.20, Est GFR (Non-Af Amer) 50 L, BUN/Creatinine Ratio 18.3, Random Glucose 119 H, Calcium 9.5, Calcium Adj for Albumin 9.6, Total Bilirubin 0.4, AST 20, ALT 38, Alkaline Phosphatase 131, B-Natriuretic Peptide 27, Total Protein 7.5, Albumin 3.5 08/12/20 05:15: SARS-CoV-2 (PCR) Not detected 08/15/20 06:05: Hep Bs Antigen Non-reactive, Hep Bs Ag Confirmation Dnr 08/15/20 06:05: Hep C Ab Signal/Cutoff 0.01, Hep C Ab Supplemental Non-reactive, HIV 1&2 Antibody (2) Non-reactive 08/15/20 06:05: WBC 17.1 H, RBC 4.22, Hgb 13.5, Hct 42.3, MCV 100.2 H, MCH 32.0 H, MCHC 31.9 L, RDW 14.4 H, Plt Count 425, MPV 11.3, Immature Gran % (Auto) 2.30 H, Immature Gran # (Auto) 0.40 H, Neutrophils % 84.8 H, Lymphocytes % 7.5 L, Monocytes % 5.0, Eosinophils % 0.0, Basophils % 0.4, Nucleated RBC % 0.0, Neutrophils # 14.5 H, Lymphocytes # 1.28 L, Monocytes # 0.9, Eosinophils # 0.0, Absolute Basophils 0.1 08/15/20 06:05: Sodium 137, Plasma Sodium 138, Potassium 4.3, Chloride 103, Carbon Dioxide 24.5, Anion Gap 13.8, BUN 24 H, Creatinine 0.98, Est GFR (Non-Af Amer) 63 D, BUN/Creatinine Ratio 24.5 H, Random Glucose 185 H, Calcium 10.6, Calcium Adj for Albumin 10.7 H, Total Bilirubin 0.3, AST 31, ALT 64, Alkaline Phosphatase 96, Total Protein 7.4, Albumin 3.5 Discharge Location: Home Disposition: Home self-care Condition: Stable Face to Face Encounter completed per [facility] Guidelines: No Discharge Activity: Activity as tolerated Discharge Diet: Low fat/chol Referrals: Amy Srinivasan MD [Primary Care Provider] - Sarah Scanlon MD [Staff Physician] - Fabio Caal MD [Associate] - Problem Oriented Discharge Instructions to Patient/Family: Hepatitis C Testing, Hepatitis B Antigen and Antibody Tests, HIV Antibody Test Prescriptions (Any new or edited meds): Fluticasone Propion/Salmeterol [Advair 500-50 Diskus] 2 puff INHALATION BID #1 disk.w.dev Transmission Status: Pending to [facility] guaiFENesin [Mucinex] 1,200 mg PO BID #60 tablet.sa Transmission Status: Pending to [facility] amLODIPine BESYLATE [Norvasc] 5 mg PO DAILY #30 tab Transmission Status: Pending to [facility] Formoterol Fumarate [Perforomist] 20 mcg INHALATION Q12H #1 vial Transmission Status: Pending to [facility] predniSONE [Prednisone] See Taper PO DAILY #30 tab Transmission Status: Pending to [facility] Montelukast Sodium [Singulair] 10 mg PO DAILY #30 tab Transmission Status: Pending to [facility] Tiotropium [place] [Spiriva] 1 cap INHALATION DAILY #1 inhaler Transmission Status: Pending to [facility] Benzonatate [Tessalon] 200 mg PO TID PRN #90 cap PRN Reason: Cough Transmission Status: Pending to [facility] Alprazolam [Xanax] 0.25 mg PO Q8H #30 tablet Transmission Status: Sent to [facility] Complete Home Medications List: Complete Home Medication List: gabapentin 300 mg capsule 300 mg PO BID #60 cap 03/05/20 losartan 50 mg tablet See Rx Instructions .ROUTE .COMPLEX #30 tab 08/09/20 meloxicam 15 mg tablet 15 mg PO DAILY #30 tab 08/09/20 albuterol sulfate 90 mcg/actuation aerosol inhaler 1 - 2 puff IH Q4H PRN #8.5 g 08/10/20 Alprazolam [Xanax] 0.25 mg PO Q8H #30 tablet 08/17/20 Benzonatate [Tessalon] 200 mg PO TID PRN #90 cap 08/17/20 Fluticasone Propion/Salmeterol [Advair 500-50 Diskus] 2 puff INHALATION BID #1 disk.w.dev 08/17/20 Formoterol Fumarate [Perforomist] 20 mcg INHALATION Q12H #1 vial 08/17/20 Montelukast Sodium [Singulair] 10 mg PO DAILY #30 tab 08/17/20 Tiotropium [place] [Spiriva] 1 cap INHALATION DAILY #1 inhaler 08/17/20 amLODIPine BESYLATE [Norvasc] 5 mg PO DAILY #30 tab 08/17/20 guaiFENesin [Mucinex] 1,200 mg PO BID #60 tablet.sa 08/17/20 predniSONE [Prednisone] See Taper PO DAILY #30 tab 08/17/20 Forms: Patient Portal Registration
[2020-08-17 12:14] VITALS: BP 134/57
[2020-08-17] MEDS ORDERED: FLU VACC QS2020-21(6MOS UP)/PF 60 MCG/0.5 ML SYRINGE IM ONE (12:15)
== END 2020-08-17 12:46 | disposition home or self-care (01) | DRG 190 ==
LOC: ER 04:13 → MS 04:13
PROVIDERS: ADMIT Family Medicine; ATTEND Family Medicine